=== PATIENT | female | born 1940 | race Caucasian/White ===

== ENCOUNTER 2016-05-03 12:21 | Day surgery (SDC) | payer MEDICARE ==
--- NOTE | 2016-04-28 16:50 | PCM.ANEPRE ---
Anesthesia Pre-Op Review Reason for Review: PACEMAKER; CARDIAC HX Anesthesia Recommendations: Proceed with Procedure Additional Comments Cardiac evaluation complete. Will need pacemaker note. HOMER precautions. Chart Reviewed by: Ian Farley MD Apr 28, 2016 16:50
[2016-05-03] VITALS (12 sets, daily range): BP systolic 110–135; BP diastolic 49–69; PULSE 60–64; RESP 12–17; O2SAT 91–97
[~2016-05-03] VITALS: Ht 162.6 cm; Wt 81.4 kg
[~2016-05-03 12:21] MED LIST: ASPI-973 PO; CALC-140 PO; CeFAZolin Inj 2 GM in IV Premix 1 EACH IV ONE; DILT60CA PO; FOLIC ACID PO; IBUP800T28 PO; LOSA25TA21 PO; LOVA20TA PO; MELA1TAB21 PO; OMEP20TA86 PO; PRE20 PO; TRIA1TAB5 PO; VIT B12 PO
[2016-05-03] MEDS ORDERED: Propofol 10,000 mCg/mL 20 mL Inj ONE (12:22)
[2016-05-03] MEDS ORDERED: Ondansetron 2 mg/mL 2 mL Inj ONE (12:22)
[2016-05-03] MEDS ORDERED: fentaNYL-PF 50 mCg/mL 2 mL Inj ONE (12:22)
[2016-05-03] MEDS ORDERED: Lidocaine PF 1% 30 mL Inj ONE (12:22)
[2016-05-03] MEDS ORDERED: Dexamethasone 4 mg/mL Inj ONE (12:22)
[2016-05-03] MEDS: Lactated Ringer's 1,000 ML IV SCH ×2 (12:34→14:38)
[2016-05-03] MEDS ORDERED: CeFAZolin Inj 2 gm / 50mL D5W IV ONE (12:59)
--- NOTE | 2016-05-03 14:13 | PCM.HPANE ---
Patient Data Surgeon Admitting Provider: Attending Provider:Kennedy Berman MD Primary Care Physician:Nishi Lugo DO Other Provider:[facility] Reason for Visit Right Rotator Cuff Tear Ht/WT & BMI Height (Feet): 5 Height (Inches): 4 Weight (Kilograms): 81.4 Body Mass Index 30.00 Allergies Coded Allergies: TAPE (Verified Adverse Reaction, Severe, rash,skin "burn", 05/03/16) enalapril (Verified Adverse Reaction, Severe, cough, 05/03/16) metoprolol (Verified Adverse Reaction, Severe, dizziness,sob, 05/03/16) Past Anesthesia History Anesthesia History: Denies:: Abnormal Airway, Anesthesia Reactions, Difficult Intubation, Fam Anesthesia Reaction, Fam Malignant Hypertherm, Malignant Hyperthermia Diabetes History Hx Diabetes?: Yes Type of Diabetes: Type II Glycemic Control: Diet Controlled MRSA MRSA: No Medications Blood Thinner: Aspirin Hypertension Medication: Yes (DILTIAZEM,LOSARTAN,TRIAMTERENE/HCTZ) Home Meds Incl Beta Christiano: No Reported Medications [Vit B-12/Folic Acid] No Conflict Check1 Tab PO DAILY 1000MCG/400MG 04/28/16 Melatonin/Pyridoxine HCl (B6) (Melatonin 10 mg Tablet)1 Each Tab.mphase2 Each PO HS 04/28/16 Losartan Potassium 25 Mg [id number] Mg PO BID 04/28/16 Aspirin 81 Mg Hozcnx07 Mg PO DAILY Ref 0 09/02/15 Omeprazole 20 Mg Tablet.dr20 Mg PO DAILY 09/02/15 Diltiazem ER 60 Mg Cap.er.12h60 Mg PO BID 30 Days Ref 0 08/26/14 Triamterene/HCTZ 75-50 mg 1 Each Tablet1 Tab PO DAILY 30 Days Ref 0 11/24/13 Lovastatin 20 Mg Rjjonf84 Mg PO HS #30 TABLET Ref 0 11/24/13 Ibuprofen 800 Mg Llzqmv772 Mg PO TID PRN For Pain Ref 0 11/24/13 Calcium Carbonate/Vitamin D3 (Calcium + Vitamin D Tablet)1 Each Tablet1 Each PO DAILY 11/24/13 Discontinued Reported Medications Prednisone (PredniSONE)20 Mg Ifwxuf98 Mg PO DAILY Ref 0 TAPERING DOSES 04/28/16 Discontinued Scripts Carbamazepine 100 Mg Kfelufv698 Mg PO BID #40 CAPSULE Prov:Axel Mae MD 09/02/15 Last Time Dose Received took diltiazem and lovastatin. Held losartan History History of ENT Problems?: Yes HEENT History: Positive for:: Cataracts (S/P B/L EXTRACTIONS,YAG LASER PROCEDURE) Denies:: Abnormal Airway Difficult Intubation Dysphagia Hearing Problem Denture Type: Full- Upper Full- Lower Other HEENT Pertinent History: HX TRIGEMINAL NEURALGIA Hx of Heart Problems?: Yes Cardiovascular History: Positive for:: Cardiac Surgery (ABLATION 1997, HEART CATH 08/2007,PACEMAKER 2013) Chest Pain (HX DE ) Coronary Artery Disease Edema (PEDAL) Heart Murmur (ECHO 08/2015 EF 45-50%) Hypertension (HYPERLIPIDEMIA) Irregular Heartbeat (HX AFIB S/P ABLATIONS X2 FOR AVNRT(AV LARISA RE-ENTRY TACHY)) Pacemaker Peripheral Vascular (LLE VENOUS INSUFFICIENCY/VARICOSITIES) Denies:: AICD Atrial Fibrillation Congestive Heart Failure (CARDIOMYOPATHY) Thrombophlebitis Valvular Heart Disease Other History/Comments Seen by bike designer and "cleared" for surgery. Cardiology records reviewed. No recent CP. Greater than 4 mets. Pacer orders in chart and reviewed. No reprogramming and magnet to be applied during surgery and removed at the end of the case Hx of Respiratory Problem?: Yes Respiratory History: Positive for:: Dyspnea (BARFIELD INTERMITTANT) Use of C-PAP Machine (HOMER+ SLEEP STUDY 06/2009 NO CPAP) Denies:: Asthma COPD Cough Hemoptysis Pneumonia Tuberculosis Hx Neurologic Problems?: Yes Neurological History: Denies:: CVA Dementia Other Neurological Pertinent: HX OF TRIGEMINAL NEURALGIA Hx of GI Problems?: Yes Gastrointestinal History: Positive for:: Diverticulitis (REMOTELY) Gall Bladder Disease (S/P JOHN,ERCP FOR PANCREATITIS) Gastroesphageal Reflux Heartburn Hiatal Hernia Denies:: Cirrhosis Rectal Bleeding (HX COLON POLYPS) Other GI Pertinent History: S/P HERNIA RPR Hx of Problems?: Yes Other Pertinent History: S/P EXC BLADDER DIVERTICULUM Female Hx: Denies:: Currently (S/P RECTOCELE RPR) Endometriosis Pelvic Inflammatory Problems with Breasts? Skin History: Positive for:: History Skin Disorders? (HX CONTACT DERMATITIS) Denies:: Pressure Ulcers Hx Musculoskeletal Problems?: Yes Musculoskeletal History: Positive for:: Back Injury Musculoskeletal Trauma (S/P B/L KNEE RPR,LT BUNIONECTOMY/HAMMERTOE RPR HX FX RT FOOT) Osteoarthritis Denies:: Joint Replacement Hx of Psycho/Social Problems?: Yes Psycho Social History: Positive for:: Hx Depression Denies:: Anxiety Bipolar Disorder Suicide Attempt Hx Surgeries?: Yes (PACEMAKER,HEART CATH,ABLATION,JOHN/ERCP,DISCECTOMY,HYST, HERNIA RPR,CATARAC) Hx Any Other Health Problems?: Yes Other History: Positive for:: Cancer (UTERINE,OVARIAN ) Hospitalization Denies:: Endocrine Disease Thyroid Disease History Blood Transfusions: Positive for:: Blood Transfusions Denies:: Blood Transfuse Reaction Hx Diabetes: Yes Hx Alcohol Use: NoHx Substance Use: No Smoking Status: Former Smoker Have You Smoked inLast 12 mo: NoApprox How Many Cigarettes/day: 18YR HX Stop/Bang S-Snoring: Do You Snore Loudly: Yes T-Tired: feel tired, fatigued: Yes O-Obsered: Observed not breath: No P-Blood Pressure: treated: Yes B- Body Mass Index > 35 kg/m2: No A- Age over 50: Yes N- Neck Large Circumference: No G- Gender Male: No HOMER Total Score: 4 Risk Assessment Category Category 1A: Patient has history of documented sleep apnea, and HAS NOT received any narcotic, sedative or anesthesia administration during this stay. Category 1B: Patient has history of documented sleep apnea, and HAS received any narcotic , sedative or anesthesia administration during this stay Category 2: Patient has SUSPECTED Obstructive Sleep Apnea, and HAS received any narcotic , sedative or anesthesia administration during this stay. Category 3: Patient has SUSPECTED Obstructive Sleep Apnea and HAS NOT received narcotic, sedative or anesthesia administration during this stay. Category 4: Outpatient in Procedural Areas with known sleep apnea or who screen positive for High Risk via the STOP/BANG questionnaire. Exam Exam Vital Signs Vital Signs Date Time Temp Pulse Resp B/P Pulse Ox O2 Delivery O2 Flow Rate FiO2 05/03/16 12:44 35.9 61 16 110/59 94 Room Air General Appearance: Alert, Oriented X3 HEENT/AIRWAY: MP 2, Neck Movement (FROM), Other (upper and lower dentures) Lungs: Clear to Auscultation, Clear to Percussion Heart: Exam Unremarkable, Regular Rate/Rhythm Meds/Labs/Diagnostics Admission Meds Current Medications Lactated Ringer's (Lr) 1,000 ml @ 120 mls/hr Q8H20M IV Last administered on t 12:34; Start 05/03/16 at 05:00; Stop 05/03/16 at 13:19 Plan Impression Patient chart reviewed, patient interviewed and anesthestic plan with risks, benefits, and alternatives discussed, and informed consent obtained. NPO Status: 1800 05/02 ASA Physical Status: ASA3 Severe Disease (pacer, CAD, CM) Anesthetic Plan: GA, Regional Block (interscalene block for post-op pain per surgeon request, pt. consents after hearing r/b/a) Bene/Risks/Altern/Consents: Yes HP Complete Prior to Induction: Yes Teto Ragsdale MD May 03, 2016 13:15
[2016-05-03] MEDS ORDERED: HYDROcodone-APAP 5-325 mg Tablet PO PRN (14:15)
--- NOTE | 2016-05-03 14:20 | PCM.ORTHOP ---
Orthopedic Operative Report Date of Service: May 03, 2016 Pre Operative Diagnosis Right shoulder rotator cuff tear, impingement syndrome, biceps tenosynovitis Post Operative Diagnosis Same Procedure Right shoulder arthroscopy, rotator cuff repair, subacromial decompression, biceps tenodesis, labral debridement, partial synovectomy Surgeon Surgeon: Kennedy Berman MD Assistants: Carmelo Bear Indication for Procedure Right shoulder rotator cuff tear Findings per dictation Details of Procedure PANEL GLUER SURGEON: During the operation, the services of physician surgical attendant were medically indicated and necessary to provide exposure of the operative site for the surgical procedure and to maintain the limb in a proper position to carry out the operation safely and efficiently. Without the qualified assistant professor being present, it would have extended the operative procedure and made the procedure technically more difficult to perform. INDICATIONS: The patient is Rachana Younger who is a 75 year old female. The risks, benefits, and alternatives of surgery were discussed with the patient. The risks included but were not limited to infection, bleeding, damage to vessels and nerves, loss of motion, continued pain, complications due to anesthesia including myocardial infarction, stroke, , etc. The patient stated understanding of the nature of the surgical procedure and gave written and verbal consent to proceed. PROCEDURE: The patient was brought into the operating room and placed supine on the operating room table. A interscalene block was placed in the right shoulder for postoperative pain management, followed by the administration of general anesthesia. . The patient was then placed into the lateral decubitus position with the right side up. An axillary role was placed and the legs were padded as necessary to avoid pressure points. The patient was maintained in position with a beanbag evacuation device. A thorough examination of the right shoulder under anesthesia was performed. The patient had 140 degrees of forward elevation and 110 degrees of abduction. In 90 degrees of abduction there was 80 degrees of external rotation and 70 degrees of internal rotation. The shoulder was stable to load-shift testing. The right upper extremity was then prepped and draped in the usual fashion. The arm was suspended with a well-padded sleeve with eight/ten pounds of balanced suspension in the arthroscopic position. A standard posterior portal was made inferior and medial to the posterior corner of the acromion. The incision was made only through skin. The trocar was advanced through the soft tissue with a blunt-tipped obturator. This was inserted into the glenohumeral joint without difficulty. The 4 mm arthroscope was placed through the cannula and attached to the video monitor system. Inflow was achieved using the arthroscopic pump. The pressure was maintained at 35-40 mm of mercury throughout the entire procedure. Once the arthroscope confirmed visualization within the shoulder joint, it was advanced anteriorly into the rotator interval beneath the biceps tendon. A Wissinger aixa was then used to create the anterior portal from inside-out. A second anterior stab wound incision was made only through skin and an anterior cannula was placed. A routine arthroscopic survey was begun. Survey: A 3 B3 C3 rotator cuff 2.5 cm x 2 cm, biceps Tenosynovitis noted The arm was then placed in the bursoscopy position. The biceps was tenotomized intra-articularly and the tension was locked prior to incorporating into the the anterior limb of the rotator cuff anchor in the subacromial space during the rotator cuff repair. Fraying to the labrum was noted and debrided with the shaver and RF device. Moderate synovitis was noted in the subacromial space and debrided with RF device Complex surgical procedure: This was an extremely complex surgical procedure which took approximately 30-40 % longer to complete than a standard repair. Without the use of a qualified marketing operations assistant, this surgical procedure would have taken even considerably longer and been unable to be performed arthroscopically. Emeterio procedure: Within the subacromial space there was marked fraying on the undersurface of the coracoacromial ligament consistent with impingement. A decision was thus made to proceed with arthroscopic subacromial decompression. Using an RF wand and a motorized shaver the coracoacromial ligament was recessed from the anterior acromial edge. An orientation trough was made along the lateral margin of the acromion, from the anterior corner back to the posterior margin of the AC joint. A sequential subacromial smoothing was carried out, removing approximately 4 mm of bone corresponding to the preoperative radiographs. Once completed, the AC joint capsule was opened. There was inferior spurring as well as synovitis and arthritic changes at the AC joint and a decision was made to proceed with distal clavicle excision. Using a motorized bur working initially from posteriorly and then anteriorly, the outer 10 mm of the distal clavicle were excised. The arthroscope was then positioned anteriorly within the AC resection site confirming an excellent level of resection. Four anchor supraspinatus repair Attention was then directed to the rotator cuff repair. Using the motorized shaver from both the anterolateral portal and the posterior portal, the free edge of rotator cuff was debrided. The anatomic neck of the tuberosity was then gently abraded, using the motorized shaver and exposing good bone for healing. Via an accessory anterolateral portal, two double-loaded anchors were then inserted with excellent fixation purchase. The 4 stitches from these two anchors were then transported across the rotator cuff spacing the sutures equidistantly. Once the sutures were all passed, 2 lateral row anchors were placed. This reduced the rotator cuff back to the anatomic neck. A microfracture was performed laterally on the tuberosity creating a crimson duvet to aid in tendon healing. The arm was then placed through a range of motion. The rotator cuff and humeral head moved well as a unit. There was no further evidence for impingement The arm was placed through a range of motion and the rotator cuff and humeral head moved well as a unit. There was no further evidence of impingement. The subacromial space was irrigated with an additional liter of lactated Ringer s solution and excess fluid was drained. The arthroscopic portals were closed with #4-0 Nylon and Steri-Strips. A dry sterile dressing was applied, followed by a neutral rotation sling. The patient was awakened in the operating room and transported to the recovery room in satisfactory condition. The patient appeared to tolerate the procedure well. There were no complications noted. Grafts, Implants: Implants-See Implant Record Complications There were no periprocedural complications identified. Condition Stable Anesthetic Administered: GA Catheters: None Output, Estimated Blood Loss: 5 Blood Admin during surgery: No Surgical Cast or Splint: Shoulder Immobilizer Surgical Specimen Removed: No Specimen sent to Pathology: No copies to: Kennedy Berman MD, Christopher L MD May 03, 2016 14:20 The lateral communication with the tuberosity was exposed, debrided and a microfracture was carried out to aid in a healing response. With the defect present a decision was made to proceed with rotator cuff repair. While visualizing from laterally, a spectrum suture hook was then used from posteriorly to penetrate across the rotator cuff, first posteriorly and then anteriorly. A suture Shuttle Relay system was then used to pass a #1 PDS, #2 Orthocord suture across the rotator cuff tear. The defect in the rotator cuff was then closed using the suture by using a locking sliding knot, followed by alternating half-hitches. Two sutures were placed for this defect, repairing the tendon, closing the defect. Single anchor helix supraspinatus repair Attention was then directed to the rotator cuff repair. Using the motorized shaver from both the anterolateral portal and the posterior portal, the free edge of rotator cuff was debrided. The anatomic neck of the tuberosity was then gently abraded, using the motorized shaver and exposing good bone for healing. Via an accessory anterolateral portal, a triple-loaded anchor was inserted, with excellent fixation purchase. The three stitches were then transported across the rotator cuff using a shuttling technique, spacing the sutures equidistantly. Once the sutures were all passed, they were sequentially tied, using SMC knots and alternating half-hitches, which gave excellent loop and knot security. This reduced the rotator cuff back to the anatomic neck. A microfracture was then performed laterally on the tuberosity creating a crimson duvet to aid in tendon healing. The arm was placed through range of motion and the rotator cuff and humeral head moved well as a unit. There was no further evidence for impingement. The subacromial space was irrigated with an additional 500 mL lactated Ringer solution. Excess fluid was drained. Two anchor helix supraspinatus repair Attention was then directed to the rotator cuff repair. Using the motorized shaver from both the anterolateral portal and the posterior portal, the free edge of rotator cuff was debrided. The anatomic neck of the tuberosity was then gently abraded, using the motorized shaver and exposing good bone for healing. Via an accessory anterolateral portal, two triple-loaded were then inserted with excellent fixation purchase. The 6 stitches from these two anchors were then transported across the rotator cuff spacing the sutures equidistantly. Once the sutures were all passed, they were sequentially tied using SMC knots and alternative half-hitches which gave excellent loop and knot security. This reduced the rotator cuff back to the anatomic neck. A microfracture was then performed laterally on the tuberosity creating a crimson duvet to aid in tendon healing. The arm was then placed through a range of motion. The rotator cuff and humeral head moved well as a unit. There was no further evidence for impingement ARTHROSCOPIC BICEPS TENODESIS Attention was then directed towards biceps tenodesis. With the arthroscope in the lateral viewing portal a motorized shaver was introduced from the anterior working portal, identifying the Mehalik hitch at the top of the bicipital groove. A motorized shaver and VAPR wand was then used inferior from this, debriding the proximal humerus and identifying the falciform ligament. The biceps tendon was then identified and the bicipital sheath was opened using a probe. The groove did reveal evidence of synovitis in this area. With appropriate resting tension maintained using the Mehalik hitch, a percutaneous spinal needle was used to sheridan the resting position of the biceps tendon, as well as the position for tenodesis at the bottom of the inter-tubercular groove. A blue laury was then used to sheridan with tendon. An accessory anterior inferior portal was made approximately 6-7 cm from the anterior acromial margin under arthroscopic control. A xqdn-hcw-jyzoxh technique was used to spread the soft tissues down to the level of the bicipital groove. The long head of the biceps was then retrieved using a grasper and the tendon was brought out the wound. A #2 Double loaded Fiberwire Sarwat Net stitch was placed for a length of 1.5 cm from the blue laury marking position in the proximal biceps. This was then sized using the Arthrex biotenodesis set and measured mm. A mm reamer was then selected. A Canuflex cannula was then placed onto the bicipital groove. The biotenodesis guide wire was placed into the proximal humerus at the designated marking position corresponding to the appropriate tension and introduced just to the posterior cortex. The anterior cortex was then reamed using the reamer for a depth of 20 mm. 2 7/64 holes were then created approximately 1.5 cm inferior to the tunnel for suture passing. A Spectrum suture hook was placed through the inferior pilot boat deckhand hole and retrieved out the proximal tunnel. A shuttling technique was carried out passing one suture limb on either side of the long head of the biceps. Tension was then applied to the biceps sutures, reducing and docking the biceps intra-osseously. With the elbow in full extension and the hand in full supination tension was applied to reapproximate the anatomic resting length and the biceps was then secured using an arthroscopic Revo knot, tying the two limbs of the suture together over the biceps tendon. This gave excellent secure fixation. The biceps was then probed and had stable fixation. The arm was placed through a range of motion and the rotator cuff and humeral head moved well as a unit. There was no further evidence of impingement. The subacromial space was irrigated with an additional liter of lactated Ringer s solution and excess fluid was drained. The arthroscopic portals were closed with #4-0 Nylon and Steri-Strips. A dry sterile dressing was applied, followed by a neutral rotation sling. The patient was awakened in the operating room and transported to the recovery room in satisfactory condition. The patient appeared to tolerate the procedure well. There were no complications noted. Grafts, Implants: Implants-See Implant Record Complications There were no periprocedural complications identified. Condition Stable Anesthetic Administered: GA Catheters: None Output, Estimated Blood Loss: 5 Blood Admin during surgery: No Surgical Cast or Splint: Shoulder Immobilizer Surgical Specimen Removed: No Specimen sent to Pathology: No copies to: Kennedy Berman MD, Christopher L MD May 03, 2016 14:20
[2016-05-03] MEDS ORDERED: Lactated Ringer's 1,000 ML IV SCH (15:12)
[2016-05-03] MEDS ORDERED: hydrALAZINE 20 mg/mL Inj IVPUSH PRN (15:15)
[2016-05-03] MEDS ORDERED: EPHEDrine Sulfate 50 mg/mL Inj IVPUSH PRN (15:15)
[2016-05-03] MEDS ORDERED: HYDROmorphone 1 mg/mL Inj IVPUSH PRN (15:15)
[2016-05-03] MEDS ORDERED: fentaNYL-PF 50 mCg/mL 2 mL Inj IVPUSH PRN (15:15)
[2016-05-03] MEDS ORDERED: Phenylephrine 10,000 mCg/mL Inj IVPUSH PRN (15:15)
[2016-05-03] MEDS ORDERED: Atropine 0.4 mg/mL Inj IVPUSH PRN (15:15)
[2016-05-03] MEDS ORDERED: MetoCLOpramide 5 mg/mL 2 mL Inj IVPUSH PRN (15:15)
[2016-05-03] MEDS ORDERED: Ondansetron 2 mg/mL 2 mL Inj IVPUSH PRN (15:15)
[2016-05-03] MEDS ORDERED: Ropivacaine-PF 0.5% 30 mL Inj INJ ONE (15:17)
--- NOTE | 2016-05-03 16:43 | PCM.ANEP2 ---
Post Anesthesia Evaluation ASA/CMS Post Anesthesia VS in Patient's Normal Range?: Yes Resp Stable; Airway Patent?: Yes CV Function & Hydration Stable: Yes Mental Status Recovered?: Yes Pain control Satisfactory?: Yes N/V Control Satisfactory?: Yes Teto Ragsdale MD May 03, 2016 16:43
--- NOTE | 2016-05-03 16:43 | PCM.ANEP1 ---
Post Anesthesia Phase 1 PACU Phase 1 Assessment Date of Service: May 03, 2016 Vital Signs Vital Signs Date Time Temp Pulse Resp B/P Pulse Ox O2 Delivery O2 Flow Rate FiO2 05/03/16 12:44 35.9 61 16 110/59 94 Room Air Anesthetic Administered: GA Level of Alertness: Awake, talking GORE's with Equal Strength: No (block) Pain: No Nausea or Vomiting: No Oxygen Delivery: Simple Mask Lungs: Clear to Auscultation, Clear to Percussion Summary See anesth record for PACU VS. PACU VSS Teto Ragsdale MD May 03, 2016 16:43
== END 2016-05-03 23:59 | disposition home or self-care (01) ==
LOC: SAS 12:21
PROVIDERS: ATTEND Orthopaedic Surgery
DX: M75.121 Complete rotator cuff tear or rupture of right shoulder, not specified as traumatic (principal); M75.41 Impingement syndrome of right shoulder; M19.011 Primary osteoarthritis, right shoulder; M75.21 Bicipital tendinitis, right shoulder; I25.10 Atherosclerotic heart disease of native coronary artery without angina pectoris; I10 Essential (primary) hypertension; E78.5 Hyperlipidemia, unspecified; I47.1 Supraventricular tachycardia; E11.9 Type 2 diabetes mellitus without complications; I44.2 Atrioventricular block, complete; G47.33 Obstructive sleep apnea (adult) (pediatric); F32.9 Major depressive disorder, single episode, unspecified; I87.2 Venous insufficiency (chronic) (peripheral); Z95.0 Presence of cardiac pacemaker; Z85.42 Personal history of malignant neoplasm of other parts of uterus; Z87.442 Personal history of urinary calculi; Z79.82 Long term (current) use of aspirin; Z87.891 Personal history of nicotine dependence
CPT/HCPCS: 29824; 29826; 29827; 36415; 76942; 84132; C1713; J0690; J1100; J2250; J2405; J2795; J3010; J7120